=== PATIENT | male | born 1935 | race Caucasian/White ===

== ENCOUNTER 2019-07-07 05:25 | Day surgery (SDC) ==
[2019-06-22 10:05] LABS: HEMATOCRIT 41.7 % (42.0-52.0); HEMOGLOBIN 13.4 g/dL (14.0-18.0); MCH 30.4 PG (27-31); MCHC 32.1 g/dL (33-37); MCV 94.6 FL (81-99); MPV 11.5 FL (7.4-10.4); RBC 4.41 XMIL (4.7-6.1); RDW 13.2 % (11.5-14.5); WBC 13.45 X1000 (4.8-10.8)
[2019-06-22 10:41] LABS: AGAP 12; BUN 15 mg/dL (8-22); CHLORIDE 95 mmol/L (98-107); COSMO 270; CREATININE 1.1 mg/dL (0.7-1.2); ESTIMATED GFR > 60; GLUCOSE 110 mg/dL (70-104); POTASSIUM 4.5 mmol/L (3.5-5.1); SODIUM 134 mmol/L (136-145); TCO2 27 mmol/L (25-35)
[2019-07-07] MEDS ORDERED: LR 1,000 ML ONE (05:58)
[2019-07-07] MEDS ORDERED: GENTAMICIN 100 MG/NS 100 MG/100 ML IVPB ONE (05:58)
[2019-07-07] MEDS ORDERED: FENTANYL ONE ×2 (06:24→08:28)
[2019-07-07] MEDS ORDERED: DIPRIVAN 1% ONE (06:25)
[2019-07-07] MEDS ORDERED: XYLOCAINE-MPF 2% ONE (06:25)
[2019-07-07] MEDS ORDERED: QUELICIN (DOSE) ONE (06:28)
[2019-07-07] MEDS ORDERED: ROBINUL ONE (07:17)
[2019-07-07] MEDS ORDERED: ZOFRAN ONE (07:18)
[2019-07-07] MEDS ORDERED: EPHEDRINE ONE (07:40)
[2019-07-07] MEDS ORDERED: B & O 15A SUPP ONE (08:59)
[2019-07-07] MEDS ORDERED: NS 1,000 ML ONE (09:20)
[2019-07-07] MEDS ORDERED: PEPCID ONE (11:22)
--- NOTE | 2019-07-07 12:05 | OPERATIVE NOTE ---
PROCEDURE DATE: 07/07/2019 SURGEON: Rafa Moise MD. 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 PROCEDURE PERFORMED: Cystoscopic exam, transurethral resection of prostate. ANESTHESIA: General via laryngeal mask. FINDINGS: Cystoscopic Exam: Urethra - Greater than 26-Polish without stricture. Prostate - Coapting lateral lobes, elevated bladder neck length approximately 5 to 6 cm. Bladder - Normal ureteral orifices bilaterally. Grade 3 trabeculations. Multiple diverticula throughout. INDICATION FOR PROCEDURE: This 84-year-old male has a long history of obstructive and irritative voiding symptoms. He is on Flomax at 0.8 mg a day. He states it is not helping anymore. He did not desire to try another medication. DESCRIPTION OF PROCEDURE: After informed consent was obtained from the patient and receiving IV antibiotics, he was taken to the main OR cystoscopy room, placed in the supine position. General anesthesia via laryngeal mask was achieved. He was then placed in the low lithotomy position and prepped and draped in the usual sterile fashion for cystoscopic exam. A 21-Polish cystoscope was passed through the patient's urethra with prostate and bladder findings noted above. The bladder was left distended. The cystoscope was removed. A 26-Polish continuous-flow resectoscope sheath was placed. The loop electrode was placed. Both ureteral orifices were visualized. The verumontanum was visualized. The resection was started at 6 o'clock position going to the level of bladder neck, level of the verumontanum, proceeding in a counterclockwise direction up to the 2 o'clock position. The resection was then started back at the 6 o'clock position going to the level of bladder neck, level of the verumontanum, proceeding in a clockwise direction up to the 10 o'clock position. Tissue from the anterior prostatic urethra was removed between the 2 o'clock and 10 o'clock positions from the level of bladder neck, level of the verumontanum. Hemostasis was achieved with electrocautery. The chips were removed from the bladder with the [employer] evacuators. The bladder was left distended. A 22-Polish, 3 way Espinoza was passed through the patient's urethra, prostate, and bladder without difficulty. 40 mL of sterile water were placed in the Espinoza's balloon. Espinoza was placed to gravity drain. The efflux was light pink in color. Continuous bladder irrigation of normal saline was started and it completely cleared. A 16-A B and O suppository was placed in the rectum. He tolerated the procedure well. ESTIMATED BLOOD LOSS: 300 mL. DISPOSITION: He was taken to recovery room in good condition. cc: Rafa Moise MD
[2019-07-07] MEDS ORDERED: NS IV ONE (15:00)
[2019-07-07] MEDS ORDERED: GENTAMICIN IV ONE (15:00)
[2019-07-07] MEDS ORDERED: NORCO-10 PO PRN (15:30)
[2019-07-07] MEDS ORDERED: NORCO-7.5 PO PRN (15:30)
[2019-07-07] MEDS ORDERED: PHENERGAN IV PRN (15:30)
[2019-07-07] MEDS ORDERED: SODIUM CHLORIDE 0.9% INJ PRN (15:30)
[2019-07-07] MEDS ORDERED: B & O 15A SUPP PR PRN (15:30)
[2019-07-07] MEDS ORDERED: LABETALOL IV PRN (15:30)
[2019-07-07] MEDS ORDERED: BENADRYL LIQUID PO PRN (15:30)
[2019-07-07] MEDS: NS 1,000 ML IV SCH (15:42)
[2019-07-07] MEDS ORDERED: ZYRTEC PO PRN (17:37)
[2019-07-07] MEDS ORDERED: FLEXERIL PO PRN (17:37)
[2019-07-07] MEDS ORDERED: NITROGLYCERIN SL PRN (17:37)
[2019-07-07] MEDS: PEPCID PO SCH (20:44)
[2019-07-07] MEDS: PERIDEX MT SCH (20:44)
[2019-07-07] MEDS: COLACE PO SCH (20:45)
[2019-07-07] MEDS ORDERED: ZOCOR PO SCH (21:00)
[2019-07-07] MEDS ORDERED: SINGULAIR PO SCH (21:00)
[2019-07-07] MEDS ORDERED: XANAX PO SCH (21:00)
[2019-07-07] MEDS: NORCO-5 PO PRN (22:46)
[2019-07-08] MEDS: NS 1,000 ML IV SCH (02:20)
[2019-07-08] MEDS: NORCO-5 PO PRN ×2 (03:42→08:16)
[2019-07-08] MEDS ORDERED: PRILOSEC PO SCH (07:00)
[2019-07-08] MEDS ORDERED: SYNTHROID PO SCH (07:00)
[2019-07-08 07:33] LABS: HEMATOCRIT 39.1 % (42.0-52.0); HEMOGLOBIN 12.4 g/dL (14.0-18.0); MCHC 31.7 g/dL (33-37); MCV 94.7 FL (81-99); MPV 11.1 FL (7.4-10.4); RBC 4.13 XMIL (4.7-6.1); RDW 13.1 % (11.5-14.5); WBC 13.62 X1000 (4.8-10.8)
[2019-07-08 07:35] VITALS: BP 156/81
[2019-07-08 08:02] LABS: AGAP 11; BUN 15 mg/dL (8-22); CALCIUM 8.8 mg/dL (8.8-10.2); CHLORIDE 102 mmol/L (98-107); COSMO 275; CREATININE 1.1 mg/dL (0.7-1.2); ESTIMATED GFR > 60; GLUCOSE 106 mg/dL (70-104); POTASSIUM 4.1 mmol/L (3.5-5.1); SODIUM 137 mmol/L (136-145); TCO2 24 mmol/L (25-35)
[2019-07-08] MEDS ORDERED: ASPIRIN PO SCH (09:00)
[2019-07-08] MEDS ORDERED: VITAMIN C PO SCH (09:00)
[2019-07-08] MEDS ORDERED: PRINIVIL PO SCH (09:00)
[2019-07-08] MEDS ORDERED: THERA M PLUS PO SCH (09:00)
[2019-07-08] MEDS ORDERED: CALTRATE 600 + D PO SCH (09:00)
[2019-07-08] MEDS ORDERED: CELEXA PO SCH (09:00)
[2019-07-08] MEDS: PERIDEX MT SCH (09:18)
[2019-07-08] MEDS: PEPCID PO SCH (09:19)
[2019-07-08] MEDS: COLACE PO SCH (09:20)
[2019-07-08] MEDS ORDERED: LASIX PO SCH (12:00)
== END 2019-07-08 11:02 | disposition home or self-care (01) ==
LOC: OR 05:25 → SURHOLD 05:25 → OR 11:02 → 4N 14:35
PROVIDERS: ATTEND Urology
PROC: UR.TURP (2019-07-07 06:57)